=== PATIENT | male | born 1965 | race Caucasian/White ===

== ENCOUNTER 2024-03-18 07:02 | Emergency (ER) | payer OTHER, SELFPAY ==
[2024-03-18] VITALS (7 sets, daily range): BP systolic 139–165; BP diastolic 83–108
--- NOTE | 2024-03-18 07:51 | ED.GENMED ---
History of Present Illness
General
Chief Complaint: Chest Pain
Source: patient
Time Seen by Provider: 03/18/24 07:26
History of Present Illness
History of Present Illness:
58-year-old gentleman presents emergency room complaining of chest pain. Patient states he has discomfort in his left chest, shoulder that seems to radiate to his left scapula. Symptoms began last night. He has had difficulty sleeping because of
the discomfort. No shortness of breath. He does have some nausea. Patient states he had a similar discomfort intermittently in the preceding couple weeks. The pain started while he was sitting watching TV. Pain may be slightly better when he
stands but nothing seems to change it much.
Phy Exam
Physical Exam
Physical Exam:
General: Awake, Alert, Oriented X3. No acute distress.
Vitals: unremarkable
Head: Atraumatic
Eyes: Pupils equal, EOMI
Throat: Airway intact, no exudates
Neck: Trachea midline
Lungs: Clear and equal b/l
Heart: Regular rate, mechanical click
Abd: Soft, Nontender, No pulsatile mass
Neuro: Nonfocal
Skin: Warm, dry, no rash
Extremities: pulses equal b/l, no edema
Scores
Heart Score for Chest Pain Patients
STEMI patient?: No
History: Moderately Suspicious
ECG: Nonspecific Repolarization
Age: >45 - <65 years
Risk Factors: >/= 3 Risk Factors or History of CAD
Troponin: </= Normal Limit
Heart Score for Chest Pain Patients: 5
Heart Score Risk: 20.3% MACE over next 6 weeks
Course
Orders/Labs/Results
Orders:
Orders
03/18/24 07:04
Electrocardiogram (*1) Urgent
Reason for Study: Chest Pain
03/18/24 07:05
EKG- Treatment ONCE
03/18/24 07:42
Electrocardiogram (*1) Urgent
Reason for Study: Chest Pain
EKG- Treatment ONCE
03/18/24 07:50
CR Chest - 2 Views Urgent
Comment:
Reason For Exam: chest pain
03/18/24 07:52
Basic Metabolic Panel Urgent
Complete Blood Count/With Diff Urgent
Prothrombin Time Urgent
Troponin I Urgent
03/18/24 07:55
Aspirin Chewable [Low Strength Aspirin] 324 mg PO NOW STA
03/18/24 09:55
Troponin I Urgent
03/18/24 10:08
ECG [Electrocardiogram (*1)] Urgent
Reason for Study: Chest Pain
03/18/24 10:09
EKG- Treatment ONCE
03/18/24 10:57
Nuclear/stress Exercise (*7) Routine
Reason for Study: chest pain
NM Cardiac Stress Routine
Comment:
Reason For Exam: chest pain
03/18/24 10:58
Echo 2D MMode Color/Doppler Routine
Reason for Study: chest pain, hx AVR
03/18/24 12:19
DH LUMASON 5mL Routine
Abnormal Lab Results
03/18/24
07:52
PT 21.7 H Sec
(11.4-14.6)
Glucose 105 H mg/dl
(70-99)
03/18/24 07:52
03/18/24 07:52
Vital Signs
Initial and Last Documented VS:
Initial Vital Signs
Temp Pulse Resp BP Pulse Ox
98.1 F 106 18 158/108 95
03/18/24 07:09 03/18/24 07:09 03/18/24 07:09 03/18/24 07:09 03/18/24 07:09
Last Documented Vital Signs
Temp Pulse Resp BP Pulse Ox
98.1 F 92 18 146/86 95
03/18/24 07:09 03/18/24 16:26 03/18/24 11:15 03/18/24 16:26 03/18/24 11:15
MDM/Problems Addressed
Differential Diagnosis Includes:
Angina, acute coronary syndrome, dysrhythmia
MDM/Problems Addressed:
Patient presents with chest pain has been present since last night. His EKG on arrival showed a right bundle branch block with some deeper T waves anteriorly that would be expected. However he converted to a sinus rhythm withou bundle branch block
that appears more normal and without signs of acute ischemia. Troponin is negative x 2. Given the patient's significant history of both CABG and aortic valve replacement I communicated with cardiology on-call. They came and evaluated the patient
and have ordered a stress test and echocardiogram. Disposition pending results of the studies
Chronic conditions affecting care: HTN and Other (Bicuspid aortic valve with aortic stenosis, coronary artery disease)
*Radiology
Radiology exam reviewed: preliminary read by ED provider (No acute disease by my review of the patient's chest x-ray)
*Pulse Oximetry
Patient hypoxic: no
*EKG
Interpreted by ED Provider?: Yes
Interpretation: abnormal
Heart Rate: 100
Rate: normal
Rhythm: sinus
QRS Pattern: right bundle branch block (Intermittent right bundle)
Ischemia: non-specific ST changes
*Director Treasurer Interpretation
Rate: normal
Interpretation: normal
Heart Rate: 92
Rhythm: sinus
*Critical Care Note
Total Time (30-74mins, 75-104mins- exclusive of procedures): Not Applicable
ED Attending Note
-
Portions of this chart may have been created with voice recognition software.� Occasional wrong word or��sound alike� substitutions may have occurred due to the inherent limitations of voice recognition software.
Discharge Plan
Departure
Patient Disposition: Home (Routine Discharge)
Date of Disposition: 03/18/24
Time of Disposition: 15:43
Patient with high blood pressure during this ER visit?: Yes
Condition: Good
Discharge Problem:
Chest pain
Instructions: Chest Pain CBC Follow Up
Prescriptions:
No Action
atorvastatin 20 MG tablet
20 mg PO QPM
aspirin [Aspir-Low] 81 MG tablet,delayed release (DR/EC)
81 mg PO QPM
furosemide 40 MG tablet
40 mg PO DAILY Qty: 7 0RF
acetaminophen 325 MG tablet
650 mg PO Q6HPRN PRN (Reason: mild pain,headache,temp >101F ) 0RF
sennosides-docusate sodium 1 TABLET tablet
1 tab PO Q12 0RF
potassium chloride [Klor-Con M20] 20 MEQ tablet,ER particles/crystals
20 meq PO DAILY Qty: 7 0RF
tamsulosin 0.4 MG capsule
0.4 mg PO DAILY Qty: 7 0RF
Rx Instructions:
continue taking until finished
pantoprazole 40 MG tablet,delayed release (DR/EC)
40 mg PO DAILY Qty: 30 0RF
metoprolol tartrate 25 MG tablet
25 mg PO BID Qty: 60 2RF
warfarin [Jantoven] 5 MG tablet
5 mg PO QPM Qty: 30 3RF
Rx Instructions:
take as instructed by your doctor,will be adjusted after checking PT/INR
Referrals:
Leatha Graham CRNP [Family Provider] -
Interventions
Interventions:
*Risk Screen - Suicide Last Done: 03/18/24 07:09
*General Assessment Last Done: 03/18/24 07:09
*Neglect/Abuse Screening Last Done: 03/18/24 07:09
ED- Fall Risk Assessment Last Done: 03/18/24 07:53
*ED COVID-19 Vaccine History Last Done: 03/18/24 07:53
*Nursing Disposition Last Done: 03/18/24 16:40
ED- Cardiac Assessment Last Done: 03/18/24 07:53
Discharge Date and Time
Discharge Date/Time: 03/18/24 16:41
Print Language: LITHUANIAN
[2024-03-18 08:04] LABS: % Basophils 0.5 % (0-2); % Immature Granulocytes 0.3 % (0-0.5); % Lymphocytes 24.9 % (20.5-51.1); % Monocytes 5.7 % (1.7-9.3); % Neutrophils 67.6 % (42.2-75.2); Absolute Eosinophils 0.1 10^3/uL (0-0.7); Absolute Lymphocytes 1.4 10^3/uL (1.2-3.4); Absolute Monocytes 0.3 10^3/uL (0.1-0.6); Absolute Neutrophils 3.9 10^3/uL (1.4-6.5); Hematocrit 42.4 % (39.0-52.0); Hemoglobin 14.6 g/dL (13.0-18.0); Mean Corp Hgb Conc. 34.4 g/dL (33.0-37.0); Mean Corpuscular Hgb 30.1 pg (27.0-31.0); Mean Corpuscular Volume 87.4 fL (80.0-94.0); Mean Platelet Volume 9.2 fL (7.4-10.4); Nucleated Red Blood Cells % 0 % (-); Platelet Count 214 10^3/uL (130-400); Red Blood Cell Count 4.85 10^6/uL (4.70-6.10); Red Cell Dist. Width 12.8 % (11.5-14.5); White Blood Cell Count 5.7 10^3/uL (4.8-10.8)
[2024-03-18] MEDS: LOW STRENGTH ASPIRIN 324 MG PO (08:07)
[2024-03-18 08:10] LABS: INR 1.83; PT 21.7 Sec (11.4-14.6)
[2024-03-18 08:12] LABS: Blood Urea Nitrogen 17 mg/dl (9-20); Carbon Dioxide 24 mmol/L (22-30); Chloride 104 mmol/L (98-107); Glucose 105 mg/dl (70-99); Potassium 3.6 mmol/L (3.5-5.1); Sodium 140 mmol/L (135-145); eGFR > 60.00
--- NOTE | 2024-03-18 08:17 | CON.CAR ---
Consultation
Consultation Request
Date/Time Consultation Requested: 03/18/24729
Date/Time Consultation Performed: 03/18/24 0940
Requesting Provider: Dr. Ronquillo
Performing Provider: Savi PEACOCK for Dr. Ley
Reason for Consultation: chest discomfort
Medical History
-
Chief Complaint: chest discomfort
History of Present Illness:
58 y/o male (follows with Dr. Aviles for cardiology) with hypertension, dyslipidemia, severe with bicuspid valve with hx mechanical AVR (on warfarin) and CAD s/p CABG x 3 (2021), intermittent RBBB, left shoulder rotator cuff issue, and carotid
stenosis (Dr. Pereira) who is here for evaluation of chest discomfort. Briefly, over the past few days he has had intermittent left upper chest and shoulder discomfort (dull pressure). It is not associated with exertion. It seems to be worse with
sitting, but with position- may be better with laying. Last night, while laying it was worse than usual- started around 6 PM and has been intermittent since then. He has also had some nausea and belching. He also has had dizziness, which is with
position change, but is unusual for him. He has been dealing with some visual changes as well and is in the midst of an OP work-up. No visual symptoms currently. He reports he had a URI in late January with wheezing, cough, congestion, fogginess-
he was treated with antibiotics. He is in no distress at the time of my assessment.
Past Medical History
Past Medical History: CAD, HTN, Hypercholesterolemia, Valvular Disease and Other (as above)
Social History
Tobacco: Non-Smoker
Personal:
Living: With Family
Family History
Family History: CAD
Allergies / Home Medications
Allergy/AdvReac Type Severity Reaction Status Date / Time
No Known Allergies Allergy Verified 03/18/24 07:09
�Medication �Instructions �Recorded �Confirmed �Type
aspirin 81 mg tablet,delayed 81 mg PO QPM Blood clot 07/19/21 07/26/21 History
release (Aspir-Low) prevention/tx
atorvastatin 20 mg tablet 20 mg PO QPM High cholesterol 07/19/21 07/26/21 History
acetaminophen 325 mg tablet 650 mg (2 x 325 mg) PO Q6HPRN PRN 07/31/21 Rx
mild pain,headache,temp >101F
furosemide 40 mg tablet 40 mg PO DAILY #7 tabs 07/31/21 Rx
metoprolol tartrate 25 mg tablet 25 mg PO BID #60 tabs 07/31/21 Rx
pantoprazole 40 mg tablet,delayed 40 mg PO DAILY #30 tabs 07/31/21 Rx
release
potassium chloride 20 mEq 20 meq PO DAILY #7 tabs 07/31/21 Rx
tablet,extended
release(part/cryst) (Klor-Con M)
sennosides 8.6 mg-docusate sodium 1 tab PO Q12 07/31/21 Rx
50 mg tablet
tamsulosin 0.4 mg capsule 0.4 mg PO DAILY #7 caps 07/31/21 Rx
warfarin 5 mg tablet (Jantoven) 5 mg PO QPM #30 tabs 07/31/21 Rx
Review of Systems
-
History Source: Patient
All other systems: Negative unless noted
Cardiac: Chest Pain
Abdomen/GI: Nausea
Neurological: Dizzy
Physical Exam
Vital Signs
Temp Pulse Resp BP Pulse Ox
98.1 F 97 15 149/90 95
03/18/24 07:09 03/18/24 07:45 03/18/24 07:45 03/18/24 07:30 03/18/24 07:45
Lab Results
03/18/24 07:52
03/18/24 07:52
Physical Exam
General: Well Developed, Well Nourished and No Apparent Distress
HEENT: Normocephalic and Anicteric
Respiratory: Clear and Non Labored Respirations
Cardiac: Regular Rhythm and Other (crisp mechanical click noted)
Musculoskeletal: No Edema
Skin: Warm and Dry
Neuro: AO x 3
Psych: Calm
Impression / Plan
-
Chest/shoulder discomfort:
-some atypical features, but does report it reminds him of symptoms prior to his cardiac intervention 2021
-trops are normal, EKG's unremarkable for ischemia
-check echo and stress test today and if normal okay for home from cardiac standpoint
CAD with hx CABG:
-continue ASA, statin
-w/u as above
/bicuspid valve:
-s/p [facility] AVR (on-X)
-checking echo as above
Carotid disease:
-follows with Dr. Pereira
RBBB:
-seems to be rate-dependent
Data Reviewed
-
EKG: Tracing Personally Visualized and interpreted (NSR)
Medical Tests (Nuc Med, Echo etc): Report Reviewed by me (echo 08/07/21: EF 60-65%, [facility] AVR MG 7.6)
Labs: Labs Reviewed by me
[2024-03-18 08:23] LABS: Troponin I < 0.012 ng/ml
[2024-03-18 10:28] LABS: Troponin I < 0.012 ng/ml
--- NOTE | 2024-03-18 11:54 | CARDSERVLU ---
Echocardiogram with Lumason completed after protocol screening completed. Allergies verified.
Patent IV site: _left AC____
IV site flushed with 0.9% NaCl pre and post administration.
Diluted bolus method utilized to enhance visualization of ventricular vallejo.
Total volume given: __1.5__ mL
Patient tolerated all procedures well without complications.
--- NOTE | 2024-03-18 15:42 | ED.ATTNOTE ---
ED Attending Note
ED Attending Note
ED Attending Note:
Patient signed out to me pending cardiology evaluation. He was seen and evaluated by cardiology, had an echo and a stress test. They were both normal. He is cleared from a cardiac standpoint at this point. His INR is 1.8 but is okay due to the
type of valve he has per cardiology. He will follow-up with them as an outpatient.
-
Portions of this chart may have been created with voice recognition software.� Occasional wrong word or��sound alike� substitutions may have occurred due to the inherent limitations of voice recognition software.
== END 2024-03-18 16:41 | disposition home or self-care (01) ==
LOC: EMR 07:02
PROVIDERS: Emergency Medicine; EMERGENCY PHYSICIAN Emergency Medicine; FAMILY PHYSICIAN Nurse Practitioner Adult Health; OTHER PHYSICIAN Internal Medicine Cardiovascular Disease
DX: R07.89 Other chest pain (principal); I10 Essential (primary) hypertension; E78.00 Pure hypercholesterolemia, unspecified; I25.10 Atherosclerotic heart disease of native coronary artery without angina pectoris; Z95.1 Presence of aortocoronary bypass graft
CPT/HCPCS: 99285; 71046; 78452; 80048; 84484; 85025; 85610; 93005; 93017; 93306; A9500; Q9950

== ENCOUNTER → 2024-03-24 12:49 | Outpatient (REF) | payer OTHER, SELFPAY | LOC: RAD 12:49 | PROVIDERS: ATTENDING PHYSICIAN Surgery Vascular Surgery; FAMILY PHYSICIAN Family Medicine | DX: I35.0 Nonrheumatic aortic (valve) stenosis (principal) | CPT/HCPCS: 70496; 70498; Q9967 ==

== ENCOUNTER → 2024-09-28 06:22 | Outpatient (REF) | payer OTHER, SELFPAY | LOC: RAD 06:22 | PROVIDERS: ATTENDING PHYSICIAN Surgery Vascular Surgery; FAMILY PHYSICIAN Nurse Practitioner Adult Health | DX: I65.21 Occlusion and stenosis of right carotid artery (principal) | CPT/HCPCS: 93880 ==